=== PATIENT | female | born 1990 | race African-American/Black ===

== ENCOUNTER → 2019-12-15 | Outpatient (CLI) | payer OTHER ==
--- NOTE | 2019-12-15 17:16 | RADIOLOGY REPORT (SQ) ---
EXAM DESCRIPTION: T SPINE AP/LAT COMPLETED DATE/TIME: 12/15/2019 4:55 pm REASON FOR STUDY: MID BACK PAIN M54.9 DORSALGIA, UNSPECIFIED COMPARISON: None. NUMBER OF VIEWS: Two views. TECHNIQUE: AP and lateral radiographic images acquired of the thoracic spine. LIMITATIONS: None. FINDINGS: MINERALIZATION: Normal. ALIGNMENT: 18 dextroscoliosis at T5-6 and 23 levoscoliosis at T10-11. VERTEBRAE: No fracture or bone lesion. Maintained height, normal segmentation. DISCS: No significant loss of height or significant narrowing. No large osteophytes. HARDWARE: None in the spine. MEDIASTINUM AND SOFT TISSUES: Normal heart size and aortic contour. No soft tissue abnormality. VISUALIZED LUNG VARGHESE: Clear. OTHER: No other significant finding. IMPRESSION: Scoliosis. No acute finding. TECHNICAL DOCUMENTATION: JOB ID: [id number] [employer]- All Rights Reserved Reading location - IP/workstation name: [email or web address]
== END ==
LOC: OD 16:36
PROVIDERS: ATTEND Nurse Practitioner Family
DX: M54.9 Dorsalgia, unspecified (principal)
CPT/HCPCS: 72070